=== PATIENT | female | born 1940 | race Caucasian/White ===

== ENCOUNTER 2017-09-24 16:46 | Inpatient (IN) ==
--- NOTE | 2017-09-24 17:08 | Emergency Department Note ---
Weakness HPI - General Chief complaint: Weakness Stated complaint: Weakness Time Seen by Provider: 09/24/17 16:49 Source: patient, EMS Mode of arrival: EMS Limitations: no limitations - History of Present Illness HPI Narrative: 76-year-old female presents with weakness, nausea vomiting, and diarrhea. She is also had a cough and congestion and was diagnosed with the flu 2 days ago and started on Tamiflu. She states that she has had diarrhea for about a week and she has black stools and is also vomiting yesterday and today and vomits coffee-ground looking vomit. No carlo blood in her stool or vomit. She has had a GI bleed in the past and has needed transfusion. She states that she has not had any issues for a long time. She is not nauseated now. She is coughing up some phlegm but not much. She was not able to walk today and was brought in by EMS. She has not taken her medications today for her diabetes. She denies any chest pain or shortness of breath. She denies any fevers. - Related Data Home Medications Medication Instructions Recorded Confirmed Glimepiride [Amaryl] 1 mg PO QAMAC 09/24/17 09/24/17 Pioglitazone [Actos] 30 mg PO DAILY 09/24/17 09/24/17 Prednisone Eye Drops 1 gtt BOTH EYES DAILY 09/24/17 09/24/17 Primidone [Mysoline] 50 mg PO DAILY 09/24/17 09/24/17 Raloxifene HCl [Evista] 60 mg PO DAILY 09/24/17 09/24/17 amLODIPine [Norvasc] 5 mg PO DAILY 09/24/17 09/24/17 metFORMIN HCL [Glucophage Xr] 500 mg PO DAILY 09/24/17 09/24/17 Allergies Allergy/AdvReac Type Severity Reaction Status Date / Time No Known Drug Allergies Allergy Verified 09/24/17 16:50 Review of Systems All systems ED: reviewed and negative except as stated. 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 Absent: conjunctival injection Neck: Present: normal inspection, full ROM Chest: Present: normal inspection, symmetric chest wall rise Respiratory: Present: other (decreased in lower lobes). Absent: wheezes Cardiovascular: Present: regular rate, normal heart sounds Abdominal: Present: soft, normal bowel sounds. Absent: tenderness Rectal: Present: decreased rectal tone, heme (+) stool, bloody stool. Absent: fecal impaction, hemorrhoids, tenderness Extremities: Present: normal inspection, full ROM. Absent: pedal edema Neurological: Present: alert, oriented X3, CN II-XII intact Patient oriented to: Present: person, place, time Cranial nerves: EOM function (II, III, IV, ): Normal, facial sensation (V): Normal, facial palsy (VII): Normal, gag reflex (IX): Normal, spinal accessory function (XI): Normal, tongue deviation (XII): Normal Motor strength - LUE: 5/5 Motor strength - RUE: 5/5 Motor strength - LLE: 5/5 Motor strength - RLE: 5/5 Coma Scale Eye Opening: Spontaneous Coma Scale Motor Response: Obeys Commands Coma Scale Verbal Response: Oriented Coma Scale Total: 15 Psychiatric: Present: normal affect, normal mood Skin: Present: warm, dry, intact Course Course Narrative: She had a vasovagal syncopal episode while on the commode and had a large tarry stool and also had hematemesis. She was laid back down and felt better. Dr. Carrion was consulted on the patient and she will be admitted to ICU. Vital Signs Temperature 98.0 F 09/24/17 16:46 Pulse Rate 89 09/24/17 16:46 Respiratory Rate 20 09/24/17 16:46 Blood Pressure 89/57 09/24/17 16:46 Pulse Oximetry (%) 100 09/24/17 16:46 Temperature 98.0 F 09/24/17 16:46 Pulse Rate 87 09/24/17 18:48 Respiratory Rate 16 09/24/17 18:48 Blood Pressure 93/56 09/24/17 18:34 Pulse Oximetry (%) 94 09/24/17 18:48 Weakness - MDM Narrative Medical decision making narrative: Previous hematocrit was 39 from April 2017. - Lab Data Result diagrams: 09/24/17 17:25 09/24/17 17:25 Lab Results 09/24/17 09/24/17 09/24/17 Range/Units 17:25 17:25 17:25 WBC 4.0 L (4.5-11.0) K/mcL RBC 2.68 L (4.00-5.20) M/mcL Hgb 8.2 L (12.0-15.0) g/dL Hct 23.8 L (36.0-48.0) % POC Hct 22.0 L (36.0-48.0) % MCV 88.8 (80.0-100.0) fL MCH 30.6 (26.0-34.0) pg MCHC 34.5 (31.0-36.0) g/dL RDW 12.9 (11.5-14.5) % Plt Count 148 (140-440) K/mcL MPV 8.8 (7.4-10.4) fL Total Counted 100 Seg Neutrophils % 72 (38-78) % Band Neutrophils % 9 (0-10) % Lymphocytes % 14 L (15-49) % Monocytes % (Manual) 4 (1-12) % Reactive Lymphocytes 1 (0-2) % Platelet Estimate Normal (NORMAL) RBC Morphology Normal (NORMAL) VBG Lactic Acid 3.0 H (0.5-2.2) mmol/L POC Sodium 134 (133-145) mmol/L Sodium 133 (133-145) mmol/L POC Potassium 5.5 H (3.3-5.1) mmol/L Potassium 5.7 H (3.3-5.1) mmol/L POC Chloride 105 (96-108) mmol/L Chloride 101 (96-108) mmol/L Carbon Dioxide 16 L (22-30) mmol/L POC Total CO2 17 L (22-30) mmol/L Anion Gap 16.0 (8-16) POC BUN 69 H (8-23) mg/dl BUN 65 H (8-23) mg/dl Creatinine 1.2 H (0.6-1.1) mg/dl POC Creatinine 1.3 H (0.6-1.1) mg/dl GFR Calculation 44 Glucose 294 H (70-105) mg/dL POC Glucose 285 H (70-105) mg/dL Calcium 7.4 L (8.6-10.4) mg/dl POC WB Ioniz Calcium 1.10 L (1.16-1.32) mmol/L Total Bilirubin 0.2 (0.0-1.0) mg/dL AST 31 (0-37) U/l ALT 24 (0-40) U/l Alkaline Phosphatase 27 L (39-117) U/L Total Protein 4.8 L (5.9-8.4) gm/dL Albumin 2.9 L (3.2-5.2) gm/dL Globulin 1.9 L (2.2-3.7) gm/dL Albumin/Globulin Ratio 1.5 (1.0-2.3) Beta-Hydroxybutyrate (< 0.27) mmol/L Urine Color Urine Appearance Urine pH (5.0-9.0) Ur Specific [place] (1.000-1.035) Urine Protein (NEG) mg/dL Urine Glucose (UA) (NEG) mg/dL Urine Ketones (NEG) mg/dL Urine Occult Blood (<0.03) mg/dL Urine Nitrate (NEG) Urine Bilirubin (NEG) mg/dL Urine Urobilinogen (NEG) mg/dL Ur Leukocyte Esterase (NEG) /uL Urine RBC (0-1) /hpf Urine WBC (0-4) /hpf Ur Squamous Epith Cells (0-4) /hpf Urine Bacteria (0) /hpf Hyaline Casts (0-2) /lpf Ur Culture Indicated? 18 09/24/17 Range/Units 17:25 18:38 WBC (4.5-11.0) K/mcL RBC (4.00-5.20) M/mcL Hgb (12.0-15.0) g/dL Hct (36.0-48.0) % POC Hct (36.0-48.0) % MCV (80.0-100.0) fL MCH (26.0-34.0) pg MCHC (31.0-36.0) g/dL RDW (11.5-14.5) % Plt Count (140-440) K/mcL MPV (7.4-10.4) fL Total Counted Seg Neutrophils % (38-78) % Band Neutrophils % (0-10) % Lymphocytes % (15-49) % Monocytes % (Manual) (1-12) % Reactive Lymphocytes (0-2) % Platelet Estimate (NORMAL) RBC Morphology (NORMAL) VBG Lactic Acid (0.5-2.2) mmol/L POC Sodium (133-145) mmol/L Sodium (133-145) mmol/L POC Potassium (3.3-5.1) mmol/L Potassium (3.3-5.1) mmol/L POC Chloride (96-108) mmol/L Chloride (96-108) mmol/L Carbon Dioxide (22-30) mmol/L POC Total CO2 (22-30) mmol/L Anion Gap (8-16) POC BUN (8-23) mg/dl BUN (8-23) mg/dl Creatinine (0.6-1.1) mg/dl POC Creatinine (0.6-1.1) mg/dl GFR Calculation Glucose (70-105) mg/dL POC Glucose (70-105) mg/dL Calcium (8.6-10.4) mg/dl POC WB Ioniz Calcium (1.16-1.32) mmol/L Total Bilirubin (0.0-1.0) mg/dL AST (0-37) U/l ALT (0-40) U/l Alkaline Phosphatase (39-117) U/L Total Protein (5.9-8.4) gm/dL Albumin (3.2-5.2) gm/dL Globulin (2.2-3.7) gm/dL Albumin/Globulin Ratio (1.0-2.3) Beta-Hydroxybutyrate 0.46 H (< 0.27) mmol/L Urine Color Yellow Urine Appearance Hazy Urine pH 5.0 (5.0-9.0) Ur Specific [place] 1.017 (1.000-1.035) Urine Protein Neg (NEG) mg/dL Urine Glucose (UA) 50 A (NEG) mg/dL Urine Ketones 5/tr A (NEG) mg/dL Urine Occult Blood Neg (<0.03) mg/dL Urine Nitrate Neg (NEG) Urine Bilirubin Neg (NEG) mg/dL Urine Urobilinogen Neg (NEG) mg/dL Ur Leukocyte Esterase 250 A (NEG) /uL Urine RBC 2 H (0-1) /hpf Urine WBC 112 H (0-4) /hpf Ur Squamous Epith Cells 0 (0-4) /hpf Urine Bacteria Mod A (0) /hpf Hyaline Casts 1 (0-2) /lpf Ur Culture Indicated? Yes Disposition Pt seen by SOLICITOR PATENT/PA only: No Clinical Impression: GI bleed Disposition: Xfer As Inpt ([facility]) Condition: Fair Referrals: Tristin Padilla MD [Primary Care Provider] -
[2017-09-24] MEDS ORDERED: PANTOPRAZOLE 40 MG VIAL IV ONE (17:52)
[2017-09-24] MEDS ORDERED: PANTOPRAZOLE 80 MG in 0.9 % SODIUM CHLORIDE 100 ML IV SCH (18:00)
[2017-09-24] MEDS ORDERED: 0.9 % SODIUM CHLORIDE 250 ML IV SCH ×3 (18:15→20:12)
[2017-09-24 18:17] LABS: Mean Cell Volume 88.8 fL (80.0-100.0); Mean Corpuscular HGB Conc 34.5 g/dL (31.0-36.0); Mean Corpuscular Hemoglobin 30.6 pg (26.0-34.0); Platelet Count 148 K/mcL (140-440); RBC 2.68 M/mcL (4.00-5.20); Red Cell Distribution Width 12.9 % (11.5-14.5)
[2017-09-24 18:32] LABS: ALT/SGPT 24 U/l (0-40); Albumin 2.9 gm/dL (3.2-5.2); Albumin/Globulin Ratio 1.5 (1.0-2.3); Alkaline Phosphatase 27 U/L (39-117); Blood Urea Nitrogen 65 mg/dl (8-23)
[2017-09-24 18:47] LABS: Band Neutrophils % 9 % (0-10); Lymphocytes % 14 % (15-49); Monocytes % (Manual) 4 % (1-12); Platelet Estimate NORMAL (NORMAL); RBC Morphology NORMAL (NORMAL); Segmented Neutrophils % 72 % (38-78)
[2017-09-24] MEDS ORDERED: ONDANSETRON 4 MG/2 ML VIAL IV ONE (18:56)
[2017-09-24] MEDS ORDERED: 0.9 % SODIUM CHLORIDE 1,000 ML IV ONE (19:04)
[2017-09-24 19:15] LABS: Appearance,Urine HAZY; Bacteria,Urine MOD /hpf (0); Bilirubin,Urine NEG (NEG); Color,Urine YELLOW; Glucose,Urine (UA) 50 mg/dL (NEG); Leukocyte Esterase,Urine 250 /uL (NEG); Protein,Urine NEG (NEG); Specific Gravity,Urine 1.017 (1.000-1.035); Urine Blood NEG mg/dL (<0.03); Urine Hyaline Cast 1 /lpf (0-2); Urine RBC 2 /hpf (0-1); Urine Squamous Epithelial Cell 0 /hpf (0-4); Urine WBC 112 /hpf (0-4); Urobilinogen,Urine NEG (NEG)
--- NOTE | 2017-09-24 19:51 | Internal Med History&Physical ---
Medical - H&P: HPI Patient information: Note initiated : 09/24/17 at 7:48 pm Service Date, if different from initiated Date: [] Patient: Poornima York a 76 y/o F admitted on for Weakness. Chief Complaint: [] History of present illness: Ms. York is a 76 year old F with history of diabetes, hypertension, presents with the emergency room today with history of not feeling well for the last 2 days. The patient notes that she has been sick for nearly a week now, she has been having cough and fatigue shortness of breath and diarrhea and some nausea. She was seen by her PCP I believe on Thursday and was told that she has the flu. She was started on Tamiflu. The patient was taking her medications however her condition worsened over the next 2 days. She has been having vomiting as well as diarrhea. Her vomit is coffee-ground in color as well as some questionable blood in that. The diarrhea is black in color, the patient was extremely weak and was finding it very difficult to get a bed. She therefore came to the emergency room for further evaluation. The patient has a history of naproxen use for headache last week, she has a history of diabetes, she denies any smoking, denies any heavy alcohol use, denies any use of steroids. She has a history of GI bleed 30 years ago. In the emergency room the patient was afebrile, very weak, hypotensive on presentation. She was given fluids with improvement in her blood pressure. The patient had bowel movements that were dark in color mixed with maroon blood. Hemoglobin for the patient was 8.2, WBC 4.0, platelets 148. The patient has sodium of 133, potassium of 5.7, carbonate of 16, BUNs 65, creatinine 1.2. Glucose is 294 lactic acid is 2.0, urine analysis is suggestive of UTI. The GI was called who noted that the patient be stabilized and he will do an endoscopy tomorrow morning unless the patient remains unstable in which case he will come intonight. The patient had headache, dizziness, no changes in vision acute however did have recent cataract surgery, no changes in hearing or difficulty in swallowing , no chest pain, shortness of breath on exertion, no palpitations, denies any abdominal pain, has diarrhea and nausea vomiting with black stools and maroon stools mixed. Did not complain of any urinary symptoms. Has generalized weakness chills subjective sensations of fever, denies any acute joint pain or swelling but does have generalized arthralgia. No swelling in the legs. Denies any psychiatric complaints by the bedside, daughter by the bedside, patient wishes to be DNR, but is okay with intubations and other aggressive measures. She is being admitted to the PCU status for further management All systems: reviewed and no additional remarkable complaints except as stated ( as per HPI) Medical - H&P: PMH Medical history: history of GI bleed 30 years ago Diabetes Hypertension Tremors Cancer of the breast Surgical history: Right-sided mastectomy Pertinent family history: mother with history of coronary artery disease and from myocardial infarction Father from intracerebral hemorrhage Social history: patient lives with her , smoking history is remote within 50 years ago Drinks socially maybe once a month Denies any marijuana or any other recreational substance use. Medical - H&P: Meds Home Medications Medication Instructions Recorded Confirmed Type Glimepiride [Amaryl] 1 mg PO QAMAC 09/24/17 09/24/17 History Pioglitazone [Actos] 30 mg PO DAILY 09/24/17 09/24/17 History Prednisone Eye Drops 1 gtt BOTH EYES DAILY 09/24/17 09/24/17 History Primidone [Mysoline] 50 mg PO DAILY 09/24/17 09/24/17 History Raloxifene HCl [Evista] 60 mg PO DAILY 09/24/17 09/24/17 History amLODIPine [Norvasc] 5 mg PO DAILY 09/24/17 09/24/17 History metFORMIN HCL [Glucophage Xr] 500 mg PO DAILY 09/24/17 09/24/17 History Allergies Allergy/AdvReac Type Severity Reaction Status Date / Time No Known Drug Allergies Allergy Verified 09/24/17 16:50 Medical - H&P: Exam - Constitutional Vitals: Temp Pulse Resp BP Pulse Ox 98.0 F 87 16 93/56 94 09/24/17 16:46 09/24/17 18:48 09/24/17 18:48 09/24/17 18:34 09/24/17 18:48 Exam: GENERAL: The patient is a well-developed, well-nourished in no apparent distress. Is alert and oriented x3. VITAL SIGNS: Reviewed and as noted elsewhere. HEENT: Head is normocephalic and atraumatic. Extraocular muscles are intact. Pupils are equal, round, and reactive to light. Nares appeared normal. Mouth appears any without lesions. Mucous membranes are dry NECK: Normal to inspection, Supple, No lymphadenopathy or thyromegaly. LUNGS: Air entry equal on both sides, no wheezing, crackles or rhonchi noted. No accessory muscles of respiration HEART: Regular rate and rhythm normal, S1 and S2 heard, no Gallop, S3 or Rub Noted, No Gross murmur heard. ABDOMEN: Soft, nontender, and nondistended. Positive bowel sounds. No hepatosplenomegaly was noted. EXTREMITIES: No cyanosis, clubbing, rash, lesions or edema. NEUROLOGIC: Cranial nerves II through XII are grossly intact. Motor and Sensory System Grossly Intact PSYCHIATRIC: Normal affect, Normal Mood. Appropriate Behavior. SKIN: No ulceration or wounds noted, No jaundice, No rash noted. Stool in the pot examined, dark maroon/ black in color. Medical - H&P: Reslt - Labs CBC & Chem 7: 09/24/17 17:25 09/24/17 17:25 Labs: Short CBC 09/24/17 Range/Units 17:25 WBC 4.0 L (4.5-11.0) K/mcL Hgb 8.2 L (12.0-15.0) g/dL Hct 23.8 L (36.0-48.0) % Plt Count 148 (140-440) K/mcL BMP 09/24/17 17:25 Sodium 133 Potassium 5.7 H Chloride 101 Carbon Dioxide 16 L BUN 65 H Creatinine 1.2 H Glucose 294 H Calcium 7.4 L Liver Function 09/24/17 Range/Units 17:25 Total Bilirubin 0.2 (0.0-1.0) mg/dL AST 31 (0-37) U/l ALT 24 (0-40) U/l Alkaline Phosphatase 27 L (39-117) U/L Albumin 2.9 L (3.2-5.2) gm/dL Urine 09/24/17 Range/Units 18:38 Urine Color Yellow Urine Appearance Hazy Urine pH 5.0 (5.0-9.0) Ur Specific [place] 1.017 (1.000-1.035) Urine Protein Neg (NEG) mg/dL Urine Glucose (UA) 50 A (NEG) mg/dL Medical - H&P: A/P - Narrative A/P Narrative: A/P Acute GI bleed Hypotensive Shock Urinary tract infection Lactic Acidosis Anion gap acidosis Acute blood loss Anemia Hyperkalemia Chronic Kidney disease Diabetes with Hyperglycemia HYpertension, essential Influenza Plan Admit to PCU status NG tube to be placed to check if still actively bleeding. If yes, then consider EGD tonight, if neg, and pt stable, can wait till tomorrow. Dr Carrion aware. IV PPI ongoing, unlikely to be variceal bleed IV fluids Transfuse 2 nits now trend hb, recheck labs correct electrolytes IV rocephin for UTI consider Central line/ PICC line if needed Hold bp meds Insulin ssi for Glucose control, hold oral dm meds Ok to continue meds for tremors and tamiflu for influenza DVT scd, no heparin in light of GIB DNR code status NPO diet except meds and ice chips.
--- NOTE | 2017-09-24 19:57 | Emergency Department Note ---
ED Note Addendum Note Addendum: i have exaxamined he patient and lab. agree with need to admitted. Dr Marcial consulted and Dr Chavez admitted for GI bleed
[2017-09-24] MEDS ORDERED: cefTRIAXone 1 GM in DEXTROSE 5% IN WATER 50 ML IV SCH (20:12)
[2017-09-24] MEDS ORDERED: HYDROmorphone 2 MG/ML VIAL IV PRN (20:12)
[2017-09-24] MEDS ORDERED: NALOXONE HCL 0.4 MG/ML VIAL IV PRN (20:12)
[2017-09-24] MEDS ORDERED: ONDANSETRON 4 MG/2 ML VIAL IV PRN (20:12)
[2017-09-24] MEDS ORDERED: DEXTROSE 50% 50 ML VIAL IV PRN (20:12)
[2017-09-24] MEDS: OSELTAMIVIR PHOSPHATE 75 MG CAPSULE PO SCH (21:45)
[2017-09-24] MEDS: 0.9 % SODIUM CHLORIDE 10 ML SYRINGE IV SCH (21:46)
[2017-09-24] MEDS: cefTRIAXone 1 GM VIAL IV SCH (21:46)
[2017-09-24 22:43] LABS: Basophils # (Auto) 0 K/mcL (0.0-0.3); Basophils % (Auto) 0.3 % (0.0-2.0); Eosinophils # (Auto) 0 K/mcL (0.0-0.7); Eosinophils % (Auto) 0.4 % (0.0-7.0); Granulocytes % (Auto) 67.8 % (38.0-78.0); Lymphocytes # (Auto) 1.1 K/mcL (1.5-4.8); Lymphocytes % (Auto) 25.8 % (15.5-49.0); Mean Cell Volume 89.6 fL (80.0-100.0); Mean Corpuscular HGB Conc 32.4 g/dL (31.0-36.0); Monocytes # (Auto) 0.2 K/mcL (0.1-0.9); Monocytes % (Auto) 5.7 % (1.0-12.0); Platelet Count 120 K/mcL (140-440); RBC 2.57 M/mcL (4.00-5.20); Red Cell Distribution Width 12.7 % (11.5-14.5)
[2017-09-24 23:17] LABS: Blood Urea Nitrogen 63 mg/dl (8-23)
[2017-09-25] MEDS: INSULIN LISPRO 1 UNIT/0.01 ML UNIT SQ SCH ×4 (01:25→17:57)
[2017-09-25] MEDS ORDERED: PANTOPRAZOLE 40 MG VIAL IV ONE (04:00)
[2017-09-25] MEDS: PANTOPRAZOLE 80 MG in 0.9 % SODIUM CHLORIDE 100 ML IV SCH ×2 (04:23→16:27)
[2017-09-25] MEDS: 0.9 % SODIUM CHLORIDE 10 ML SYRINGE IV SCH ×3 (05:50→21:41)
[2017-09-25 06:02] LABS: ALT/SGPT 21 U/l (0-40); Albumin 2.7 gm/dL (3.2-5.2); Albumin/Globulin Ratio 1.4 (1.0-2.3); Alkaline Phosphatase 24 U/L (39-117); Bilirubin,Direct < 0.2 mg/dL (0.0-0.3); Blood Urea Nitrogen 56 mg/dl (8-23); Gamma Glutamyl Transpeptidase 40 U/L (5-36); Uric Acid 5.8 mg/dL (2.5-8.0)
[2017-09-25 06:13] LABS: Basophils # (Auto) 0 K/mcL (0.0-0.3); Basophils % (Auto) 0.4 % (0.0-2.0); Eosinophils # (Auto) 0 K/mcL (0.0-0.7); Eosinophils % (Auto) 0.3 % (0.0-7.0); Granulocytes % (Auto) 55.3 % (38.0-78.0); Lymphocytes # (Auto) 1.8 K/mcL (1.5-4.8); Lymphocytes % (Auto) 36.8 % (15.5-49.0); Mean Cell Volume 87.9 fL (80.0-100.0); Mean Corpuscular HGB Conc 34.8 g/dL (31.0-36.0); Mean Corpuscular Hemoglobin 30.6 pg (26.0-34.0); Monocytes # (Auto) 0.4 K/mcL (0.1-0.9); Monocytes % (Auto) 7.2 % (1.0-12.0); Platelet Count 116 K/mcL (140-440); Red Cell Distribution Width 13.5 % (11.5-14.5)
--- NOTE | 2017-09-25 07:48 | XRay Report ---
HISTORY: Reason for Exam:cough, low O2 sat , influenza FINDINGS: The lungs are clear and well expanded, without evidence of pneumonia. There is no adenopathy or pleural effusion. The heart size and mediastinum are normal. IMPRESSION: Normal chest Interpreted and Authenticated by: Jc Kwok 09/25/17
--- NOTE | 2017-09-25 07:52 | XRay Report ---
HISTORY: Reason for Exam:NG tube placement and weakness FINDINGS: There is a nasogastric tube with the tip in the antrum of the stomach. Stomach is decompressed. The lungs are clear. No free intra-abdominal air is present. The bowel gas pattern is normal. Disc space narrowing and spur formation are present at T11-12. IMPRESSION: Well-positioned nasogastric tube and no evidence of bowel obstruction Interpreted and Authenticated by: Jc Kwok 09/25/17
[2017-09-25] MEDS: cefTRIAXone 1 GM VIAL IV SCH (09:50)
[2017-09-25] MEDS ORDERED: ACETAMINOPHEN 650 MG/65 ML BOTTLE IV PRN (11:43)
[2017-09-25] MEDS: PRIMIDONE 50 MG TABLET PO SCH (12:43)
[2017-09-25] MEDS: RALOXIFENE HCL 60 MG TABLET PO SCH (12:43)
[2017-09-25] MEDS: PREDNISONE EYE BOTH EYES SCH (12:43)
[2017-09-25] MEDS: OSELTAMIVIR PHOSPHATE 75 MG CAPSULE PO SCH ×2 (12:44→21:41)
[2017-09-25] MEDS ORDERED: KETAMINE 10 MG/ML ML IV PRN (14:06)
[2017-09-25] MEDS ORDERED: PROPOFOL 200 MG/20 ML VIAL IV SCH (14:15)
[2017-09-25] MEDS ORDERED: MIDAZOLAM 2 MG/2 ML VIAL IV SCH (14:15)
[2017-09-25] MEDS ORDERED: PROPOFOL 20 ML IV ONE (14:24)
[2017-09-25] MEDS ORDERED: EPINEPHrine 1 MG/ML AMPUL IV ONE (15:09)
[2017-09-25] MEDS ORDERED: EPINEPHrine 1 MG/ML AMPUL IJ ONE (15:45)
--- NOTE | 2017-09-25 16:21 | Operative Note ---
DATE OF OPERATION: 09/25/2017 PREPROCEDURE DIAGNOSIS: Upper GI bleed secondary to ulcer or Dieulafoy's lesion. POSTPROCEDURE DIAGNOSES: 1. Upper gastrointestinal bleed secondary to ulcers. 2. Gastritis. 3. Ring/stricture EG junction. 4. Hiatal hernia. 5. Total of five ulcers seen. PROCEDURE: Esophagogastroduodenoscopy with control of bleeding and biopsy of antrum for CLOtest. SURGEON: Jhon Alcala M.D. INSTRUMENT USED: Olympus ROJAS [id number] endoscope. SPECIMENS OBTAINED: Biopsies from antrum for CLOtest. CLOtest RESULTS: Negative INDICATIONS: The patient is a 76-year-old lady whose primary care physician is Dr. Tristin Padilla. The patient denies use of blood thinners. She denies use of nonsteroidal anti-inflammatory drugs. She stated since Thursday, which I believe would be 09/23, she has had some nausea and vomiting. She has had some coffee-ground emesis. She has had a little melena sometimes reddish tinge to the material that is coming from the rectum. This seems consistent with an upper GI bleed. Endoscopy is indicated. INFORMED CONSENT: The procedure was reviewed with the patient. The patient had no further questions and accepts the risks and benefits thereof. One of the risks that were discussed included . Additional risks that were also discussed included bleeding, reaction to medication, possible perforation and possible need for surgery. IV MEDICATIONS USED: Versed 1 mg and propofol 60 mg. A total of 5 mL of hypertonic saline/epinephrine were used. FINDINGS: ESOPHAGUS: Proximal, mid and distal esophagus normal. EG JUNCTION: This was at 32 cm. There was a stricture noted. This did not interfere with the passage of the scope. Dilation was not accomplished at this time but may be later. The hiatal hernia extended down to about 36 cm. STOMACH: Cardia, fundus and body normal. Antrum: There were two larger ulcers, one about 1 x 4 cm in a very irregular configuration. The other was around 2 x 3 cm. The 2 x 3 cm ulcer did have a questionable or probable pigmented spot. This is presumed to be the bleeding site. However, it has a low risk of continued or rebleeding. A total of 5 mL of hypertonic saline/epinephrine mixture was injected around these larger ulcers. The heater probe was applied to the questionable pigmented spot. Two pulses were used. Also in the prepyloric region there were a few areas of erythema noted. Biopsies were taken for CLOtest. PYLORUS: Normal. DUODENUM: This appeared normal. RECOMMENDATIONS: Diet can be allowed, liquid and advance to soft as tolerated. PPI medication can be changed to p.o. I see no objections to discharging the patient in one or two days provided she is stable. The endoscopic appearance of the ulcers suggests a low risk for continued bleeding. Treatment was applied which may or may not be of benefit. Given the fact that she did not really seek medical attention for ulcers prior to bleeding, I would recommend she have a followup EGD in two or three months to evaluate status of healing and/or dilate the stricture. CRD:diane Job ID: [id number] Doc ID: [id number] Jhon Padilla MD [facility]
[2017-09-25] MEDS ORDERED: guaiFENesin/DEXTROMETHORPHAN ORAL SOL PO PRN (17:42)
--- NOTE | 2017-09-25 17:46 | Internal Med Progress Note ---
Medical - PN: Subj Patient information: Note initiated : 09/25/17 at 5:43 pm Service Date, if different from initiated Date: [] Patient: Poornima York a 76 y/o F admitted on 09/24/17 for Weakness/GI Bleed. Chief Complaint: [] Interval history: Ms. York is a 76 year old F with history of diabetes, hypertension, presents with the emergency room today with history of not feeling well for the last 2 days. The patient notes that she has been sick for nearly a week now, she has been having cough and fatigue shortness of breath and diarrhea and some nausea. She was seen by her PCP I believe on Thursday and was told that she has the flu. She was started on Tamiflu. The patient was taking her medications however her condition worsened over the next 2 days. She has been having vomiting as well as diarrhea. Her vomit is coffee-ground in color as well as some questionable blood in that. The diarrhea is black in color, the patient was extremely weak and was finding it very difficult to get a bed. She therefore came to the emergency room for further evaluation. The patient has a history of naproxen use for headache last week, she has a history of diabetes, she denies any smoking, denies any heavy alcohol use, denies any use of steroids. She has a history of GI bleed 30 years ago. In the emergency room the patient was afebrile, very weak, hypotensive on presentation. She was given fluids with improvement in her blood pressure. The patient had bowel movements that were dark in color mixed with maroon blood. Hemoglobin for the patient was 8.2, WBC 4.0, platelets 148. The patient has sodium of 133, potassium of 5.7, carbonate of 16, BUNs 65, creatinine 1.2. Glucose is 294 lactic acid is 2.0, urine analysis is suggestive of UTI. The GI was called who noted that the patient be stabilized and he will do an endoscopy tomorrow morning unless the patient remains unstable in which case he will come intonight. The patient had headache, dizziness, no changes in vision acute however did have recent cataract surgery, no changes in hearing or difficulty in swallowing , no chest pain, shortness of breath on exertion, no palpitations, denies any abdominal pain, has diarrhea and nausea vomiting with black stools and maroon stools mixed. Did not complain of any urinary symptoms. Has generalized weakness chills subjective sensations of fever, denies any acute joint pain or swelling but does have generalized arthralgia. No swelling in the legs. Denies any psychiatric complaints by the bedside, daughter by the bedside, patient wishes to be DNR, but is okay with intubations and other aggressive measures. She is being admitted to the PCU status for further management Sep 25 patient seen and examined, no acute overnight events, patient remained hemodynamically stable throughout the night. This morning she was a bit drowsy but did not complain of any acute issues. No bleeding. Still has dark stools. I do expect him to remain for at least 2-3 more days Patient had endoscopy done which showed gastric ulcers treated at Dr. PARIKH. He thinks that the patient will be stable for discharge in 1-2 days chances rebleed are low Pertinent ROS: Denies headache, dizziness Denies chest pain, palpitations Denies cough or shortness of breath Denies abdominal pain, nausea or vomiting. - Constitutional Vitals: Vital Signs Temp Pulse Resp BP Pulse Ox 99.9 F H 54 L 24 H 117/57 98 09/25/17 12:50 09/25/17 17:21 09/25/17 17:21 09/25/17 17:05 09/25/17 17:21 Period Temp Pulse Resp BP Sys/Morales Pulse Ox Last 24 Hr 97.7 F-100.9 F 53-143 11-24 75-187/53-131 94-100 Intake and Output 09/25/17 09/25/17 09/25/17 05:59 13:59 21:59 Intake Total 456 / 456 43 43 100 / 100 Output Total 450 / 450 1100 / 1100 175 / 175 Balance 6 / 6 -1057 / -1057 -75 / -75 Weight 148 lb 4.8 oz Patient Weight 09/26/17 05:59 Weight 148 lb 4.8 oz Intake & Output: Intake & Output 09/25/17 09/25/17 09/25/17 05:59 13:59 21:59 Intake Total 456 / 456 43 / 43 100 / 100 Output Total 450 / 450 1100 / 1100 175 / 175 Balance 6 / 6 -1057 / -1057 -75 / -75 Weight 148 lb 4.8 oz Intake: IV 81 / 81 43 / 43 100 / 100 Protonix 80 mg In Sodium 81 / 81 100 / 100 Chloride 0.9% 100 ml @ 8 MG/HR 10 mls/hr IV Q10H [facility] Rx#: [id number] Oral 50 / 50 Blood Product 325 / 325 Output: Void Amount 300 / 300 175 / 175 Urine/Stool Mix 800 / 800 Stool 450 / 450 Other: Stool Color Black Stool Consistency Soft # Voids 1 # Bowel Movements 2 Exam: Constitutional; Afebrile, cooperative, alert, not in distress. Eyes- No icterus, , No periorbital swelling Respiratory system: Air Entry equal on both sides, No crackles or wheezing, no rhonchi. CVS- Rate rhythm regular, S1,S2 heard, no gallop, no rub. Abdomen- Soft nontender abdomen, no organomegaly, no tenderness, no guarding or rigidity, CLINICAL PROGRAM DIRECTOR- AOOx3, moving all extremities, no gross focal deficit noted. Medical - PN: Obj Da - Labs CBC & Chem 7: 09/25/17 03:30 09/25/17 03:30 Labs: Abnormal Lab Results 09/25/17 09/25/17 09/24/17 03:30 03:30 22:10 WBC RBC 3.20 L Hgb 9.8 L Hct 28.2 L POC Hct Plt Count 116 L Lymph # (Auto) Lymphocytes % VBG Lactic Acid 2.3 H POC Potassium Potassium Carbon Dioxide 19 L POC Total CO2 POC BUN BUN 56 H Creatinine POC Creatinine Glucose 155 H POC Glucose Calcium 7.4 L POC WB Ioniz Calcium GGT 40 H Alkaline Phosphatase 24 L Total Protein 4.6 L Albumin 2.7 L Globulin 1.9 L Beta-Hydroxybutyrate Urine Glucose (UA) Urine Ketones Ur Leukocyte Esterase Urine RBC Urine WBC Urine Bacteria 09/24/17 09/24/17 09/24/17 22:10 22:10 18:38 WBC 4.1 L RBC 2.57 L Hgb 7.5 L Hct 23.1 L POC Hct Plt Count 120 L Lymph # (Auto) 1.1 L Lymphocytes % VBG Lactic Acid POC Potassium Potassium Carbon Dioxide 15 L POC Total CO2 POC BUN BUN 63 H Creatinine POC Creatinine Glucose 240 H POC Glucose Calcium 7.1 L POC WB Ioniz Calcium GGT Alkaline Phosphatase Total Protein Albumin Globulin Beta-Hydroxybutyrate Urine Glucose (UA) 50 A Urine Ketones 5/tr A Ur Leukocyte Esterase 250 A Urine RBC 2 H Urine WBC 112 H Urine Bacteria Mod A 09/24/17 09/24/17 09/24/17 17:25 17:25 17:25 WBC RBC Hgb Hct POC Hct 22.0 L Plt Count Lymph # (Auto) Lymphocytes % VBG Lactic Acid 3.0 H POC Potassium 5.5 H Potassium 5.7 H Carbon Dioxide 16 L POC Total CO2 17 L POC BUN 69 H BUN 65 H Creatinine 1.2 H POC Creatinine 1.3 H Glucose 294 H POC Glucose 285 H Calcium 7.4 L POC WB Ioniz Calcium 1.10 L GGT Alkaline Phosphatase 27 L Total Protein 4.8 L Albumin 2.9 L Globulin 1.9 L Beta-Hydroxybutyrate 0.46 H Urine Glucose (UA) Urine Ketones Ur Leukocyte Esterase Urine RBC Urine WBC Urine Bacteria 09/24/17 17:25 WBC 4.0 L RBC 2.68 L Hgb 8.2 L Hct 23.8 L POC Hct Plt Count Lymph # (Auto) Lymphocytes % 14 L VBG Lactic Acid POC Potassium Potassium Carbon Dioxide POC Total CO2 POC BUN BUN Creatinine POC Creatinine Glucose POC Glucose Calcium POC WB Ioniz Calcium GGT Alkaline Phosphatase Total Protein Albumin Globulin Beta-Hydroxybutyrate Urine Glucose (UA) Urine Ketones Ur Leukocyte Esterase Urine RBC Urine WBC Urine Bacteria Meds: Medications Amlodipine Besylate (Norvasc) 5 mg PO DAILY [facility] Ceftriaxone Sodium (Rocephin) 1 gm IV Q24H [facility] Last Admin: 09/25/17 09:50 Dose: 1 gm Dextrose (Dextrose 50%) 0 ml IV UD PRN PRN Reason: Hypoglycemia Diagnostic Test (Pha) (Accu-Chek) 1 each FS Q6 [facility] Last Admin: 09/25/17 15:28 Dose: 1 each Diagnostic Test (Pha) (Accu-Chek) 1 each FS ONCE [facility] Stop: 09/25/17 22:06 Last Admin: 09/25/17 16:31 Dose: Not Given Guaifenesin (Robitussin Dm) 10 ml PO Q4HP PRN PRN Reason: Cough Hydromorphone HCl (Dilaudid) 0.5 mg IV Q2HP PRN PRN Reason: PAIN LEVEL > 6 Acetaminophen (Ofirmev) 650 mg in 65 mls @ 130 mls/hr IV Q6HP PRN PRN Reason: PAIN/FEVER > 101 Last Infusion: 09/25/17 12:25 Dose: 0 mls/hr Insulin Human Lispro (Humalog) 0 unit SQ Q6 MORE PRN Reason: Protocol Last Admin: 09/25/17 15:29 Dose: Not Given Ketamine HCl (Ketalar) 50 mg IV ONCE PRN PRN Reason: Sedation Stop: 09/25/17 22:06 Midazolam HCl (Versed) 0 mg IV ONCE MORE Stop: 09/25/17 22:06 Last Admin: 09/25/17 14:50 Dose: 1 mg Naloxone HCl (Narcan) 0.1 mg IV Q2MIN PRN PRN Reason: Opiate Reversal Omeprazole (Prilosec) 20 mg [facility] Ondansetron HCl (Zofran) 4 mg IV Q4-6HP PRN PRN Reason: Nausea And Vomiting Oseltamivir Phosphate (Tamiflu) 75 mg PO BID [facility] Stop: 09/28/17 09:01 Last Admin: 09/25/17 12:44 Dose: Not Given Prednisone Eye Drops 1 dose BOTH EYES DAILY [facility] Last Admin: 09/25/17 12:43 Dose: Not Given Primidone (Mysoline) 50 mg PO DAILY [facility] Last Admin: 09/25/17 12:43 Dose: Not Given Propofol (Diprivan) 0 mg IV ONCE [facility] Stop: 09/25/17 22:06 Last Admin: 09/25/17 14:50 Dose: 60 mg Raloxifene HCl (Evista) 60 mg PO DAILY [facility] Last Admin: 09/25/17 12:43 Dose: Not Given Sodium Chloride (Saline Flush) 10 ml IV Q8 [facility] Last Admin: 09/25/17 16:31 Dose: 10 ml Medical - PN: A/P - Time Spent With Patient Total time spent is greater than 50% in coordination of care (as documented) at patient's floor/unit and/or counseling patient: - Narrative A/P Narrative: A/P Acute GI bleed/ Gastric Ulcer: s/p EGD, low risk of rebleed, Oral ppi, now. Monitor in unit overnight. Hypotensive Shock: Resolved Urinary tract infection: gram neg bacillus on urine cx, on rocephin. has low grade temp, montor Lactic Acidosis: resolved Acute blood loss Anemia: due to gastric ulcer, s/p 3 units prbc xfusion. monitor. Hyperkalemia: resolved Chronic Kidney disease: creat stable, at b aseline 1.1 Diabetes with Hyperglycemia: glucose well controlled with ssi insulin. HYpertension, essential: bp stable resume oral meds from tomorrow Influenza: has cough, cxr neg, on tamiflu Essential T remors: continue pirimidone. DVT scd, no heparin in light of GIB DNR code status NPO liquid diet. Medical - PN: Qual - VTE Deep Vein Thrombosis/Pulmonary Embolism Present on Admission: No
[2017-09-25] MEDS ORDERED: guaiFENesin/DEXTROMETHORPHAN ORAL SOL PO ONE (23:47)
[2017-09-26] MEDS: INSULIN LISPRO 1 UNIT/0.01 ML UNIT SQ SCH ×5 (00:49→20:09)
[2017-09-26 06:22] LABS: Basophils # (Auto) 0 K/mcL (0.0-0.3); Basophils % (Auto) 0.3 % (0.0-2.0); Eosinophils # (Auto) 0.1 K/mcL (0.0-0.7); Eosinophils % (Auto) 1.7 % (0.0-7.0); Granulocytes % (Auto) 55.9 % (38.0-78.0); Lymphocytes # (Auto) 1.9 K/mcL (1.5-4.8); Lymphocytes % (Auto) 37.5 % (15.5-49.0); Mean Cell Volume 87.7 fL (80.0-100.0); Mean Corpuscular HGB Conc 34.5 g/dL (31.0-36.0); Mean Corpuscular Hemoglobin 30.2 pg (26.0-34.0); Monocytes # (Auto) 0.2 K/mcL (0.1-0.9); Monocytes % (Auto) 4.6 % (1.0-12.0); Platelet Count 100 K/mcL (140-440); RBC 3.66 M/mcL (4.00-5.20); Red Cell Distribution Width 15.4 % (11.5-14.5)
[2017-09-26 06:50] LABS: ALT/SGPT 18 U/l (0-40); Albumin 2.9 gm/dL (3.2-5.2); Albumin/Globulin Ratio 1.5 (1.0-2.3); Alkaline Phosphatase 26 U/L (39-117); Bilirubin,Direct < 0.2 mg/dL (0.0-0.3); Blood Urea Nitrogen 26 mg/dl (8-23); Gamma Glutamyl Transpeptidase 38 U/L (5-36); Uric Acid 5.7 mg/dL (2.5-8.0)
[2017-09-26] MEDS ORDERED: OMEPRAZOLE 20 MG CAPSULE PO SCH (07:30)
[2017-09-26] MEDS: 0.9 % SODIUM CHLORIDE 10 ML SYRINGE IV SCH ×3 (07:42→23:47)
[2017-09-26] MEDS ORDERED: amLODIPine 5 MG TABLET PO SCH (09:00)
[2017-09-26] MEDS: RALOXIFENE HCL 60 MG TABLET PO SCH (09:34)
[2017-09-26] MEDS: OSELTAMIVIR PHOSPHATE 75 MG CAPSULE PO SCH (09:35)
[2017-09-26] MEDS: PREDNISONE EYE BOTH EYES SCH (09:35)
[2017-09-26] MEDS: PRIMIDONE 50 MG TABLET PO SCH (09:35)
[2017-09-26] MEDS: cefTRIAXone 1 GM VIAL IV SCH (09:37)
[2017-09-26] MEDS ORDERED: ACETAMINOPHEN 650 MG/65 ML BOTTLE IV PRN (10:39)
[2017-09-26] MEDS ORDERED: ONDANSETRON 4 MG/2 ML VIAL IV PRN (10:39)
[2017-09-26] MEDS ORDERED: DEXTROSE 50% 50 ML VIAL IV PRN (10:39)
[2017-09-26] MEDS ORDERED: HYDROmorphone 2 MG/ML VIAL IV PRN (10:39)
[2017-09-26] MEDS ORDERED: NALOXONE HCL 0.4 MG/ML VIAL IV PRN (10:39)
--- NOTE | 2017-09-26 14:51 | Internal Med Progress Note ---
Medical - PN: Subj Patient information: Note initiated : 09/26/17 at 2:48 pm Service Date, if different from initiated Date: [] Patient: Poornima York a 76 y/o F admitted on 09/24/17 for Weakness/GI Bleed. Chief Complaint: [] Interval history: Ms. York is a 76 year old F with history of diabetes, hypertension, presents with the emergency room today with history of not feeling well for the last 2 days. The patient notes that she has been sick for nearly a week now, she has been having cough and fatigue shortness of breath and diarrhea and some nausea. She was seen by her PCP I believe on Thursday and was told that she has the flu. She was started on Tamiflu. The patient was taking her medications however her condition worsened over the next 2 days. She has been having vomiting as well as diarrhea. Her vomit is coffee-ground in color as well as some questionable blood in that. The diarrhea is black in color, the patient was extremely weak and was finding it very difficult to get a bed. She therefore came to the emergency room for further evaluation. The patient has a history of naproxen use for headache last week, she has a history of diabetes, she denies any smoking, denies any heavy alcohol use, denies any use of steroids. She has a history of GI bleed 30 years ago. In the emergency room the patient was afebrile, very weak, hypotensive on presentation. She was given fluids with improvement in her blood pressure. The patient had bowel movements that were dark in color mixed with maroon blood. Hemoglobin for the patient was 8.2, WBC 4.0, platelets 148. The patient has sodium of 133, potassium of 5.7, carbonate of 16, BUNs 65, creatinine 1.2. Glucose is 294 lactic acid is 2.0, urine analysis is suggestive of UTI. The GI was called who noted that the patient be stabilized and he will do an endoscopy tomorrow morning unless the patient remains unstable in which case he will come intonight. The patient had headache, dizziness, no changes in vision acute however did have recent cataract surgery, no changes in hearing or difficulty in swallowing , no chest pain, shortness of breath on exertion, no palpitations, denies any abdominal pain, has diarrhea and nausea vomiting with black stools and maroon stools mixed. Did not complain of any urinary symptoms. Has generalized weakness chills subjective sensations of fever, denies any acute joint pain or swelling but does have generalized arthralgia. No swelling in the legs. Denies any psychiatric complaints by the bedside, daughter by the bedside, patient wishes to be DNR, but is okay with intubations and other aggressive measures. She is being admitted to the PCU status for further management Sep 25 patient seen and examined, no acute overnight events, patient remained hemodynamically stable throughout the night. This morning she was a bit drowsy but did not complain of any acute issues. No bleeding. Still has dark stools. I do expect him to remain for at least 2-3 more days Patient had endoscopy done which showed gastric ulcers treated at Dr. PARIKH. He thinks that the patient will be stable for discharge in 1-2 days chances rebleed are low sep 26 pt seen examined, no acute overnight events, hb stable, no bleed pt has no more complaints toleating po well advance diet as tolerated IV rocephin for uti, had low grade fever, on tamiflu for possible flu. Pertinent ROS: Denies headache, dizziness Denies chest pain, palpitation improving cough, No shortness of breath Denies abdominal pain, nausea or vomiting. - Constitutional Vitals: Vital Signs Temp Pulse Resp BP Pulse Ox 98.0 F 77 16 159/63 97 09/26/17 11:09 09/26/17 08:18 09/26/17 11:09 09/26/17 11:09 09/26/17 11:09 Period Temp Pulse Resp BP Sys/Morales Pulse Ox Last 24 Hr 97.4 F-99.0 F 49-91 06-26 117-187/57-138 97-100 Intake and Output 09/26/17 09/26/17 09/26/17 05:59 13:59 21:59 Output Total 900 / 900 450 / 450 Balance -900 / -900 -450 / -450 Intake & Output: Intake & Output 09/26/17 09/26/17 09/26/17 05:59 13:59 21:59 Output Total 900 / 900 450 / 450 Balance -900 / -900 -450 / -450 Output: Void Amount 900 / 900 450 / 450 Other: # Voids 1 Exam: Constitutional; Afebrile, cooperative, alert, not in distress. Eyes- No icterus, , No periorbital swelling Ears- Ext ear normal, hearing normal to conversation. Neck- Midline trachea, supple Respiratory system: Air Entry equal on both sides, No crackles or wheezing, no rhonchi. CVS- Rate rhythm regular, S1,S2 heard, no gallop, no rub. Abdomen- Soft nontender abdomen, no organomegaly, no tenderness, no guarding or rigidity, UPPER DOUBLER- AOOx3, moving all extremities, no gross focal deficit noted. Medical - PN: Obj Da - Labs CBC & Chem 7: 09/26/17 04:00 09/26/17 04:00 Labs: Abnormal Lab Results 09/26/17 09/26/17 09/25/17 04:00 04:00 03:30 WBC RBC 3.66 L Hgb 11.1 L Hct 32.1 L POC Hct RDW 15.4 H Plt Count 100 L Lymph # (Auto) Lymphocytes % VBG Lactic Acid POC Potassium Potassium Carbon Dioxide 21 L 19 L POC Total CO2 POC BUN BUN 26 H 56 H Creatinine POC Creatinine Glucose 155 H POC Glucose Calcium 7.9 L 7.4 L POC WB Ioniz Calcium Phosphorus 2.1 L GGT 38 H 40 H Alkaline Phosphatase 26 L 24 L Total Protein 4.9 L 4.6 L Albumin 2.9 L 2.7 L Globulin 2.0 L 1.9 L Beta-Hydroxybutyrate Urine Glucose (UA) Urine Ketones Ur Leukocyte Esterase Urine RBC Urine WBC Urine Bacteria 09/25/17 09/24/17 09/24/17 03:30 22:10 22:10 WBC RBC 3.20 L Hgb 9.8 L Hct 28.2 L POC Hct RDW Plt Count 116 L Lymph # (Auto) Lymphocytes % VBG Lactic Acid 2.3 H POC Potassium Potassium Carbon Dioxide 15 L POC Total CO2 POC BUN BUN 63 H Creatinine POC Creatinine Glucose 240 H POC Glucose Calcium 7.1 L POC WB Ioniz Calcium Phosphorus GGT Alkaline Phosphatase Total Protein Albumin Globulin Beta-Hydroxybutyrate Urine Glucose (UA) Urine Ketones Ur Leukocyte Esterase Urine RBC Urine WBC Urine Bacteria 09/24/17 09/24/17 09/24/17 22:10 18:38 17:25 WBC 4.1 L RBC 2.57 L Hgb 7.5 L Hct 23.1 L POC Hct RDW Plt Count 120 L Lymph # (Auto) 1.1 L Lymphocytes % VBG Lactic Acid POC Potassium Potassium Carbon Dioxide POC Total CO2 POC BUN BUN Creatinine POC Creatinine Glucose POC Glucose Calcium POC WB Ioniz Calcium Phosphorus GGT Alkaline Phosphatase Total Protein Albumin Globulin Beta-Hydroxybutyrate 0.46 H Urine Glucose (UA) 50 A Urine Ketones 5/tr A Ur Leukocyte Esterase 250 A Urine RBC 2 H Urine WBC 112 H Urine Bacteria Mod A 09/24/17 09/24/17 09/24/17 17:25 17:25 17:25 WBC 4.0 L RBC 2.68 L Hgb 8.2 L Hct 23.8 L POC Hct 22.0 L RDW Plt Count Lymph # (Auto) Lymphocytes % 14 L VBG Lactic Acid 3.0 H POC Potassium 5.5 H Potassium 5.7 H Carbon Dioxide 16 L POC Total CO2 17 L POC BUN 69 H BUN 65 H Creatinine 1.2 H POC Creatinine 1.3 H Glucose 294 H POC Glucose 285 H Calcium 7.4 L POC WB Ioniz Calcium 1.10 L Phosphorus GGT Alkaline Phosphatase 27 L Total Protein 4.8 L Albumin 2.9 L Globulin 1.9 L Beta-Hydroxybutyrate Urine Glucose (UA) Urine Ketones Ur Leukocyte Esterase Urine RBC Urine WBC Urine Bacteria Meds: Medications Amlodipine Besylate (Norvasc) 5 mg PO DAILY [facility] Ceftriaxone Sodium (Rocephin) 1 gm IV DAILY [facility] Dextrose (Dextrose 50%) 0 ml IV UD PRN PRN Reason: Hypoglycemia Diagnostic Test (Pha) (Accu-Chek) 1 each FS Q6 [facility] Guaifenesin (Robitussin Dm) 10 ml PO Q4HP PRN PRN Reason: Cough Hydromorphone HCl (Dilaudid) 0.5 mg IV Q2HP PRN PRN Reason: PAIN LEVEL > 6 Acetaminophen (Ofirmev) 650 mg in 65 mls @ 130 mls/hr IV Q6HP PRN PRN Reason: PAIN/FEVER > 101 Insulin Human Lispro (Humalog) 0 unit SQ Q6 [facility] PRN Reason: Protocol Naloxone HCl (Narcan) 0.1 mg IV Q2MIN PRN PRN Reason: Opiate Reversal Omeprazole (Prilosec) 20 mg PO BIDAC [facility] Ondansetron HCl (Zofran) 4 mg IV Q4-6HP PRN PRN Reason: Nausea And Vomiting Oseltamivir Phosphate (Tamiflu) 75 mg PO BID [facility] Stop: 09/26/17 21:01 Prednisone Eye Drops 1 dose BOTH EYES DAILY [facility] Primidone (Mysoline) 50 mg PO DAILY [facility] Raloxifene HCl (Evista) 60 mg PO DAILY [facility] Sodium Chloride (Saline Flush) 10 ml IV Q8 [facility] Medical - PN: A/P - Time Spent With Patient Total time spent is greater than 50% in coordination of care (as documented) at patient's floor/unit and/or counseling patient: - Narrative A/P Narrative: A/P Acute GI bleed/ Gastric Ulcer: s/p EGD, low risk of rebleed, Oral ppi, now. hb stable, on med surg from today, anticipate d/c home tomorrow if remains stable. Hypotensive Shock: Resolved Urinary tract infection: thapa sensitive ecoli on urine cx, on rocephin. has low grade temp, Lactic Acidosis: resolved Acute blood loss Anemia: due to gastric ulcer, s/p 3 units prbc xfusion. monitor. hb stable. Hyperkalemia: resolved Chronic Kidney disease: creat stable, at b aseline 1.1 Diabetes with Hyperglycemia: glucose well controlled with ssi insulin. Hypertension, essential: bp stable resume oral meds from tomorrow Influenza: has cough, cxr neg, on tamiflu Essential Tremors: continue pirimidone. DVT scd, no heparin in light of GIB DNR code status advance diet as tolerated. Medical - PN: Qual - VTE Deep Vein Thrombosis/Pulmonary Embolism Present on Admission: No
[2017-09-26] MEDS: OMEPRAZOLE 20 MG CAPSULE PO SCH (17:01)
[2017-09-26] MEDS ORDERED: OSELTAMIVIR PHOSPHATE 75 MG CAPSULE PO SCH (21:00)
[2017-09-27 05:52] LABS: Basophils # (Auto) 0 K/mcL (0.0-0.3); Basophils % (Auto) 0.2 % (0.0-2.0); Eosinophils # (Auto) 0.1 K/mcL (0.0-0.7); Eosinophils % (Auto) 1.7 % (0.0-7.0); Granulocytes % (Auto) 60.6 % (38.0-78.0); Lymphocytes # (Auto) 1.8 K/mcL (1.5-4.8); Lymphocytes % (Auto) 32.4 % (15.5-49.0); Mean Cell Volume 87.2 fL (80.0-100.0); Mean Corpuscular HGB Conc 33.9 g/dL (31.0-36.0); Mean Corpuscular Hemoglobin 29.6 pg (26.0-34.0); Monocytes # (Auto) 0.3 K/mcL (0.1-0.9); Monocytes % (Auto) 5.1 % (1.0-12.0); Platelet Count 135 K/mcL (140-440); RBC 3.87 M/mcL (4.00-5.20); Red Cell Distribution Width 14.6 % (11.5-14.5)
[2017-09-27 06:23] LABS: ALT/SGPT 23 U/l (0-40); Albumin 3.3 gm/dL (3.2-5.2); Albumin/Globulin Ratio 1.6 (1.0-2.3); Alkaline Phosphatase 28 U/L (39-117); Bilirubin,Direct < 0.2 mg/dL (0.0-0.3); Blood Urea Nitrogen 19 mg/dl (8-23); Gamma Glutamyl Transpeptidase 44 U/L (5-36); Uric Acid 6.6 mg/dL (2.5-8.0)
[2017-09-27] MEDS: 0.9 % SODIUM CHLORIDE 10 ML SYRINGE IV SCH ×3 (07:01→14:51)
[2017-09-27] MEDS: INSULIN LISPRO 1 UNIT/0.01 ML UNIT SQ SCH ×2 (07:01→11:56)
[2017-09-27] MEDS: OMEPRAZOLE 20 MG CAPSULE PO SCH (07:23)
[2017-09-27] MEDS: guaiFENesin/DEXTROMETHORPHAN ORAL SOL PO PRN ×2 (07:28→14:51)
[2017-09-27] MEDS ORDERED: RALOXIFENE HCL 60 MG TABLET PO SCH (09:00)
[2017-09-27] MEDS ORDERED: OSELTAMIVIR PHOSPHATE 75 MG CAPSULE PO SCH (09:00)
[2017-09-27] MEDS ORDERED: amLODIPine 5 MG TABLET PO SCH (09:00)
[2017-09-27] MEDS ORDERED: cefTRIAXone 1 GM VIAL IV SCH (09:00)
[2017-09-27] MEDS ORDERED: PRIMIDONE 50 MG TABLET PO SCH (09:00)
[2017-09-27] MEDS ORDERED: PREDNISONE EYE BOTH EYES SCH (09:00)
--- NOTE | 2017-09-27 15:16 | Discharge Summary ---
Medical - DS: Prov Patient information: Note initiated : 09/27/17 at 3:13 pm Service Date, if different from initiated Date: [] Patient: Poornima York 76 y/o F admitted on 09/24/17 for Weakness/GI Bleed. Chief Complaint: [] Date of admission: 09/24/17 20:02 Discharge date: 09/27/17 Primary care physician: Tristin Padilla Admitting clinician: Radha Chavez Consults: 09/24/17 18:50 Consult to Physician [CONS] Stat Comment: Consulting Provider: Jhon Alcala Reason For Exam: Physician to Consult 09/24/17 19:10 Consult to Physician [CONS] Stat Comment: Consulting Provider: Radha Chavez Reason For Exam: Physician to Consult Discharging clinician: Radha Chavez Medical - DS: Meds - Discharge Medications Prescriptions: Cephalexin [Keflex] 500 mg PO BID #10 cap Omeprazole [Prilosec] 20 mg PO BIDAC #60 cap Oseltamivir Phosphate [Tamiflu] 75 mg PO BID #6 cap Active and Home Medications: Home Medications Glimepiride [Amaryl] 1 mg PO QAMAC 09/24/17 [History Confirmed 09/24/17 Last Taken Unknown] Pioglitazone [Actos] 30 mg PO DAILY 09/24/17 [History Confirmed 09/24/17 Last Taken Unknown] Prednisone Eye Drops 1 gtt BOTH EYES DAILY 09/24/17 [History Confirmed 09/24/17 Last Taken Unknown] Primidone [Mysoline] 50 mg PO DAILY 09/24/17 [History Confirmed 09/24/17 Last Taken Unknown] Raloxifene HCl [Evista] 60 mg PO DAILY 09/24/17 [History Confirmed 09/24/17 Last Taken Unknown] amLODIPine [Norvasc] 5 mg PO DAILY 09/24/17 [History Confirmed 09/24/17 Last Taken Unknown] metFORMIN HCL [Glucophage Xr] 500 mg PO DAILY 09/24/17 [History Confirmed Last Taken Unknown] Medical - DS: Hosp Hospital course: Ms. York is a 76 year old F with history of diabetes, hypertension, presents with the emergency room today with history of not feeling well for the last 2 days. The patient notes that she has been sick for nearly a week now, she has been having cough and fatigue shortness of breath and diarrhea and some nausea. She was seen by her PCP I believe on Thursday and was told that she has the flu. She was started on Tamiflu. The patient was taking her medications however her condition worsened over the next 2 days. She has been having vomiting as well as diarrhea. Her vomit is coffee-ground in color as well as some questionable blood in that. The diarrhea is black in color, the patient was extremely weak and was finding it very difficult to get a bed. She therefore came to the emergency room for further evaluation. The patient has a history of naproxen use for headache last week, she has a history of diabetes, she denies any smoking, denies any heavy alcohol use, denies any use of steroids. She has a history of GI bleed 30 years ago. In the emergency room the patient was afebrile, very weak, hypotensive on presentation. She was given fluids with improvement in her blood pressure. The patient had bowel movements that were dark in color mixed with maroon blood. Hemoglobin for the patient was 8.2, WBC 4.0, platelets 148. The patient has sodium of 133, potassium of 5.7, carbonate of 16, BUNs 65, creatinine 1.2. Glucose is 294 lactic acid is 2.0, urine analysis is suggestive of UTI. Acute upper GI Bleed: patient received 3 units prbc, hb remained stable, she had EGD done by Dr Carrion, few gastric ulcers noted. started on oral ppi, the patient tolerated the treatment well. Will need to continue treatment till seen by GI as outpatient. UTI: UA noted to be abnormal, patient had ecoli in culture thapa sensitive, treated with rocephin while inpatient, will complete another 5 days with oral keflex. INfluenza: Cough, fever, weakness, likely from flu, was on tamiflu while here, complete course as outapatient. The rest of stay in the hospital was uneventful, patient tolerating oral diet well. Follow up with GI in 1-2 weeks for results of gastric biopsy as well as future EGD to confirm resolution of the ulcers. Discharge diagnosis: Upper GI bleed, UTI, Flu - Time Spent with Patient Total time spent providing and/or coordinating discharge services: Greater than 30 minutes Medical - DS: Exam - Constitutional Vitals: Vital Signs Temp Pulse Resp BP Pulse Ox 09/27/17 15:00 98.9 F 16 152/68 93 09/27/17 11:39 98.9 F 16 152/68 93 09/27/17 07:13 97.7 F 18 128/66 96 09/27/17 04:43 97.9 F 72 16 130/72 96 09/27/17 00:33 97.7 F 69 16 120/69 96 09/26/17 19:48 98.3 F 71 18 156/74 96 09/26/17 15:59 97.9 F 18 126/74 98 Intake and Output 09/27/17 09/27/17 09/27/17 05:59 13:59 21:59 Intake Total 200 / 200 Output Total 150 / 150 Balance 50 / 50 Intake: Oral 200 / 200 Output: Void Amount 150 / 150 Other: # Voids 1 Additional comments: Constitutional; Afebrile, cooperative, alert, not in distress. Eyes- No icterus, , No periorbital swelling Ears- Ext ear normal, hearing normal to conversation. Neck- Midline trachea, supple Respiratory system: Air Entry equal on both sides, No crackles or wheezing, no rhonchi. CVS- Rate rhythm regular, S1,S2 heard, no gallop, no rub. Abdomen- Soft nontender abdomen, no organomegaly, no tenderness, no guarding or rigidity, [employer]- AOOx3, moving all extremities, no gross focal deficit noted. Medical - DS: Data Procedures and tests throughout hospitalization: chest x ray IMPRESSION: Normal chest ABdominal X ray IMPRESSION: Well-positioned nasogastric tube and no evidence of bowel obstruction Labs on day of discharge: Labs from last 24 hours 09/27/17 09/27/17 04:35 04:35 WBC 5.7 RBC 3.87 L Hgb 11.4 L Hct 33.8 L MCV 87.2 MCH 29.6 MCHC 33.9 RDW 14.6 H Plt Count 135 L MPV 8.6 Gran % 60.6 Lymph % (Auto) 32.4 [place] % (Auto) 5.1 Eos % (Auto) 1.7 Baso % (Auto) 0.2 Gran # 3.4 Lymph # (Auto) 1.8 [place] # (Auto) 0.3 Eos # (Auto) 0.1 Baso # (Auto) 0 Sodium 137 Potassium 4.5 Chloride 102 Carbon Dioxide 21 L Anion Gap 14.0 BUN 19 Creatinine 1.0 GFR Calculation 54 Glucose 111 H Uric Acid 6.6 Calcium 8.2 L Phosphorus 2.6 L Magnesium 1.9 Total Bilirubin 0.4 Direct Bilirubin < 0.2 GGT 44 H AST 42 H ALT 23 Alkaline Phosphatase 28 L Lactate Dehydrogenase 220 Total Protein 5.4 L Albumin 3.3 Globulin 2.1 L Albumin/Globulin Ratio 1.6 Triglycerides 118 Preliminary micro results at discharge 09/24/17 17:26 Blood Culture - Preliminary Blood 09/24/17 17:30 Blood Culture - Preliminary Blood Medical - DS: A/P - Patient/Caregiver Discharge Instructions Activity: increase activity as tolerated Diet: Consistent Carbohydrate Additional Instructions: YOu were admitted to the hospital for Upper gi bleed Take omeprazole 20mg twice daily 30 mins before food Follow up with PCP in 1 week Follow up with GI Dr Carrion in 1-2 weeks for results of your biopsy and scheduling next EGD Take antibiotics, Cephalexin for another 5 days. You should have some tamiflu prescribed by your PCP, you can take it for another 3 days, I have sent a prescription for tamiflu just in case you dont have it at home. GO to the ER if worsening symptoms, black stools recur or you notice blood in the stools. GO to the ER if chest pain, fever, shortness of breath or any other concerning symptom. - Follow up Plan Follow up with: Tristin Padilla MD [Primary Care Provider] - Jhon Alcala MD [Physician] - Disposition: Home, Self-Care Prognosis: Fair Rehab Potential: Fair I certify that the patient requires SNF services: No Overall status at discharge: patient is back to baseline Medical - DS: Qual - VTE Deep Vein Thrombosis/Pulmonary Embolism Present on Admission: No
--- NOTE | 2017-09-28 13:04 | Surgical Pathology Report ---
HISTOLOGY SPECIMEN MICROSCOPIC DIAGNOSIS STOMACH, ULCER, BIOPSY: -- CHRONIC GASTRITIS, MILD, WITHOUT ACTIVITY. -- NO HELICOBACTER ORGANISMS IDENTIFIED ON ALCIAN YELLOW STAIN (ADEQUATE TECHNICAL CONTROL). (DMT:raphael) CLINICAL HISTORY Upper GI bleed; no NSAID; diarrhea. PROCEDURAL IMPRESSION Upper GI bleed secondary to ulcers; gastritis; ring/stricture; hiatal hernia. GROSS DESCRIPTION Received in formalin labeled gastric biopsy gastric ulcer, are [place] tissue fragments from 0.1 to 0.5 cm. They are entirely submitted - one cassette. (SCB:raphael) Electronically Signed by: Tristin Wyman M.D.
== END 2017-09-27 15:45 | disposition home or self-care (01) | DRG 377 ==
LOC: ED 16:46 → ICU 20:02 → MEDSUR 09-26 11:11
PROVIDERS: ADMIT Internal Medicine; ATTEND Internal Medicine